=== PATIENT | male | born 1945 | race African-American/Black ===

== ENCOUNTER 2021-04-23 08:52 | Inpatient (IN) | payer MEDICARE, MEDICAID ==
[2021-04-23 10:02] LABS: #Lymphocytes 2.4 thou/uL (1.20-3.40); #Monocytes 1.3 thou/uL (0.11-0.59); #Neutrophils 9.6 thou/uL (1.40-6.50); %Basophils 0.3 % (0.0-1.0); %Eosinophils 0.1 % (0.0-10.0); %Monocytes 9.6 % (0.0-10.0); Hemoglobin 13.2 g/dL (14.0-18.0); Mean Corpuscular Hemoglobin 26.7 pg (27.0-31.0); Mean Corpuscular Volume 86.3 fL (78.0-98.0); Mean Platelet Volume 7.9 fL (7.4-10.4); Platelet Count 233 thou/uL (130-400); RBC Distribution Width 15.4 % (11.5-14.5); Red Blood Cell (RBC) Count 4.95 mill/uL (4.70-6.10); White Blood Cell (WBC) Count 13.4 thou/uL (4.8-10.8)
[2021-04-23 10:20] LABS: ALT (SGPT) 13 U/L (8-55); AST (SGOT) 19 U/L (5-34); Albumin 4.5 g/dL (3.4-4.8); Alkaline Phosphatase 66 U/L (40-110); Anion Gap 14 mmol/L (10-20); BUN (Urea Nitrogen) 17 mg/dL (8.4-25.7); Bilirubin, Total 1.3 mg/dL (0.2-1.2); Calc. Creatinine Clearance 0 mL/min (70-130); Calcium 9.5 mg/dL (7.8-10.44); Carbon Dioxide 28 mmol/L (23-31); Chloride 103 mmol/L (98-107); Globulin 3.1 g/dL (2.4-3.5); Glucose 181 mg/dL (83-110); Potassium 3.7 mmol/L (3.5-5.1); Protein, Total 7.6 g/dL (5.8-8.1); Sodium 141 mmol/L (136-145)
[2021-04-23] MEDS ORDERED: cefTRIAXone\\ROCEPHIN 2 GM VIAL ONE (10:28)
[2021-04-23] MEDS ORDERED: Ipratropium Bromide 2.5 ml Neb ONE ×2 (10:28→11:21)
[2021-04-23] MEDS ORDERED: Azithromycin 500 MG VIAL ONE (10:28)
[2021-04-23] MEDS ORDERED: Magnesium 2 GM/50 ML BAG (IN WATER) ONE (10:28)
[2021-04-23] MEDS ORDERED: Albuterol Sulfate 2.5 mg/0.5 ml Neb ONE ×3 (10:28→11:31)
[2021-04-23 11:42] LABS: Actual Bicarbonate (HCO3a) 25.4 mEq/L (22-28); Analyzer IN Cardio ER; Base Excess (BEa) -2.9 mEq/L (-2.0 to +3.0); Calcium, Ionized (arterial) 1.21 mmol/L (1.12-1.30); Carboxyhemoglobin (COHb) 0.6 gm% (0.0-3.0); Hemoglobin (Hb) 12.9 g/dL (14.0-18.0); O2 Tension (PaO2), arterial 76.6 mmHg (> 70.0); Potassium - ABG Lab 3.66 mmol/L (3.70-5.30)
[2021-04-23 11:43] LABS: CO2 Tension 60.1 mmHg (35.0-45.0); Puncture Site LBA; pH, Arterial 7.24 (7.35-7.45)
[2021-04-23 11:50] LABS: CKMB 3.1 ng/mL (0-6.6)
[2021-04-23] MEDS ORDERED: methylPREDNISolone Sod Succ/PF 125 MG/2 ML VIAL ONE (12:35)
[2021-04-23 13:11] LABS: Lactic Acid 4.1 mmol/L (0.5-2.2)
[2021-04-23] MEDS: Sodium Chloride 0.9% 1,000 ML IV SCH (14:30)
[2021-04-23 14:39] LABS: SARS-CoV-2 NAA Rapid Test Not Detected (NotDetected)
[2021-04-23 14:54] LABS: Troponin I 0.048 ng/mL (< 0.028)
[2021-04-23] MEDS: Nicotine 14 MG PATCH TD SCH (16:00)
[2021-04-23] MEDS: methylPREDNISolone Sod Succ 40 MG VIAL IVP SCH ×2 (17:11→23:05)
[2021-04-23 18:00] LABS: Troponin I 0.039 ng/mL (< 0.028)
[2021-04-23] MEDS: Famotidine 20 MG TAB PO SCH (20:34)
[2021-04-24 03:31] LABS: #Lymphocytes 0.8 thou/uL (1.20-3.40); #Monocytes 0.5 thou/uL (0.11-0.59); #Neutrophils 7.5 thou/uL (1.40-6.50); %Basophils 0.3 % (0.0-1.0); %Eosinophils 0.1 % (0.0-10.0); %Lymphocytes 8.9 % (21.0-51.0); %Neutrophils 84.8 % (42.0-75.0); Hemoglobin 11.4 g/dL (14.0-18.0); Mean Corpuscular HGB CONC 31.8 g/dL (32.0-36.0); Mean Corpuscular Hemoglobin 27.3 pg (27.0-31.0); Mean Corpuscular Volume 85.8 fL (78.0-98.0); Mean Platelet Volume 7.1 fL (7.4-10.4); Platelet Count 190 thou/uL (130-400); Red Blood Cell (RBC) Count 4.17 mill/uL (4.70-6.10); White Blood Cell (WBC) Count 8.8 thou/uL (4.8-10.8)
[2021-04-24 03:47] LABS: Anion Gap 12 mmol/L (10-20); BUN (Urea Nitrogen) 20 mg/dL (8.4-25.7); Calc. Creatinine Clearance 50 mL/min (70-130); Calcium 8.6 mg/dL (7.8-10.44); Carbon Dioxide 27 mmol/L (23-31); Chloride 108 mmol/L (98-107); Glucose 176 mg/dL (83-110); Sodium 143 mmol/L (136-145)
[2021-04-24] MEDS: methylPREDNISolone Sod Succ 40 MG VIAL IVP SCH ×3 (05:12→18:03)
[2021-04-24] MEDS: Sodium Chloride 0.9% 1,000 ML IV SCH ×2 (05:12→18:03)
[2021-04-24] MEDS: cefTRIAXone\\ROCEPHIN 2 GM in Sodium Chloride 0.9% 100 ML IVPB SCH (09:28)
[2021-04-24] MEDS ORDERED: Albuterol Sulfate 1.25 MG/3 ML NEB NEB PRN (12:02)
[2021-04-24] MEDS: Azithromycin 250 MG, Admixture Fee 1 EACH in Sodium Chloride 0.9% 250 ML 250 ML IVPB SCH (12:03)
[2021-04-24] MEDS: Nicotine 14 MG PATCH TD SCH (12:06)
[2021-04-24] MEDS ORDERED: Furosemide 20 MG/2 ML VIAL SLOW IVP SCH (18:15)
[2021-04-24] MEDS: Famotidine 20 MG TAB PO SCH (19:33)
[2021-04-24] MEDS ORDERED: Acetaminophen 325 MG TAB PO PRN (20:05)
[2021-04-25] MEDS: methylPREDNISolone Sod Succ 40 MG VIAL IVP SCH ×5 (00:19→23:33)
[2021-04-25] MEDS: Furosemide 40 MG/4 ML VIAL SLOW IVP SCH ×2 (06:23→12:59)
[2021-04-25] MEDS ORDERED: Albuterol Sulfate 2.5 mg/3 ml Neb NEB PRN (08:05)
[2021-04-25] MEDS ORDERED: guaiFENesin ER 600 MG TAB PO SCH (09:00)
[2021-04-25] MEDS: cefTRIAXone\\ROCEPHIN 2 GM in Sodium Chloride 0.9% 100 ML IVPB SCH (09:18)
[2021-04-25] MEDS: Azithromycin 250 MG, Admixture Fee 1 EACH in Sodium Chloride 0.9% 250 ML 250 ML IVPB SCH (12:12)
[2021-04-25] MEDS: guaiFENesin ER 600 MG TAB PO SCH ×2 (13:00→20:43)
[2021-04-25] MEDS: Nicotine 14 MG PATCH TD SCH (17:06)
[2021-04-25] MEDS: Famotidine 20 MG TAB PO SCH (20:43)
[2021-04-26] MEDS: methylPREDNISolone Sod Succ 40 MG VIAL IVP SCH ×4 (06:08→23:11)
[2021-04-26] MEDS: guaiFENesin ER 600 MG TAB PO SCH ×2 (07:43→20:28)
[2021-04-26] MEDS: Nicotine 14 MG PATCH TD SCH (14:47)
[2021-04-26] MEDS ORDERED: Albuterol Sulfate 2.5 mg/3 ml Neb NEB PRN (16:40)
[2021-04-26] MEDS ORDERED: Albuterol Sulfate 2.5 mg/3 ml Neb NEB SCH (16:45)
[2021-04-26] MEDS: Famotidine 20 MG TAB PO SCH (20:28)
[2021-04-27] MEDS: methylPREDNISolone Sod Succ 40 MG VIAL IVP SCH ×2 (05:40→21:37)
[2021-04-27] MEDS: guaiFENesin ER 600 MG TAB PO SCH ×2 (07:56→21:36)
[2021-04-27] MEDS: Nicotine 14 MG PATCH TD SCH (17:06)
[2021-04-27] MEDS: Famotidine 20 MG TAB PO SCH (21:36)
[2021-04-28] MEDS: guaiFENesin ER 600 MG TAB PO SCH ×2 (08:11→21:26)
[2021-04-28] MEDS: methylPREDNISolone Sod Succ 40 MG VIAL IVP SCH (08:11)
[2021-04-28] MEDS: Nicotine 14 MG PATCH TD SCH (15:48)
[2021-04-28] MEDS: Famotidine 20 MG TAB PO SCH (21:26)
[2021-04-29] MEDS: guaiFENesin ER 600 MG TAB PO SCH ×2 (08:11→19:49)
[2021-04-29] MEDS: predniSONE 20 MG TAB PO SCH (08:11)
[2021-04-29] MEDS: Nicotine 14 MG PATCH TD SCH (15:12)
[2021-04-29] MEDS: Famotidine 20 MG TAB PO SCH (19:50)
[2021-04-29 23:55] LABS: SARS-CoV-2 PCR by NAA Not Detected (NotDetected)
[2021-04-30 04:34] VITALS: BMI 19.5
[2021-04-30 07:10] VITALS: BP 153/81; TEMP 97.8
[2021-04-30] MEDS: predniSONE 20 MG TAB PO SCH (08:30)
[2021-04-30] MEDS: guaiFENesin ER 600 MG TAB PO SCH (08:30)
== END 2021-04-30 13:40 | DRG 280 ==
LOC: ERS 08:52 → IMCU/EMU 12:50 → T4-B 04-27 13:43
PROVIDERS: ADMIT Internal Medicine; ATTEND Hospitalist
DX: I11.0 Hypertensive heart disease with heart failure (principal); J96.01 Acute respiratory failure with hypoxia; I21.A1 Myocardial infarction type 2; I50.33 Acute on chronic diastolic (congestive) heart failure; J96.02 Acute respiratory failure with hypercapnia; J18.9 Pneumonia, unspecified organism; Z20.822 Contact with and (suspected) exposure to COVID-19; J43.9 Emphysema, unspecified; E78.5 Hyperlipidemia, unspecified; I27.20 Pulmonary hypertension, unspecified; F17.210 Nicotine dependence, cigarettes, uncomplicated; Z79.51 Long term (current) use of inhaled steroids; Z79.52 Long term (current) use of systemic steroids; Z79.899 Other long term (current) drug therapy; Z86.711 Personal history of pulmonary embolism; Z85.118 Personal history of other malignant neoplasm of bronchus and lung; Z98.890 Other specified postprocedural states; Z79.890 Hormone replacement therapy
CPT/HCPCS: 36415; 36600; 71045; 80048; 80053; 82553; 82805; 83605; 83880; 84145; 84484; 85025; 87040; 93005; 93306; 94640; 94660; 96365; 96366; 96368; 96375; 97139; J0456; J0696; J1940; J2920; J2930; J3475; J3490; J7050; J7512; J7611; J7620; U0002; U0003; U0005